=== PATIENT | female | born 1950 | race Caucasian/White ===

== ENCOUNTER 2021-10-13 11:37 | Outpatient (CLI) | payer MEDICARE | END 2021-10-13 11:38 | disposition home or self-care (01) | LOC: CSHMAMMO 11:37 | PROVIDERS: ATTEND Obstetrics & Gynecology | DX: Z13.820 Encounter for screening for osteoporosis (principal); M81.0 Age-related osteoporosis without current pathological fracture; M85.852 Other specified disorders of bone density and structure, left thigh | CPT/HCPCS: 77080 ==

== ENCOUNTER 2022-12-01 10:12 | Outpatient (CLI) | payer MEDICARE | END 2022-12-01 10:13 | disposition home or self-care (01) | LOC: CSHMAMMO 10:12 | PROVIDERS: ATTEND Obstetrics & Gynecology | DX: M81.0 Age-related osteoporosis without current pathological fracture (principal) | CPT/HCPCS: 77080 ==

== ENCOUNTER 2023-02-07 09:29 | Emergency (ER) | payer MEDICARE ==
[2023-02-07] MEDS ORDERED: Dexamethasone 10 MG/ML VIAL ONE (09:51)
[2023-02-07] MEDS ORDERED: Ipratropium/Albuterol 3 ML NEB ONE (09:53)
[2023-02-07 10:18] LABS: Hemoglobin 13.7 g/dL (12.0-15.5); Mean Corpuscular Hemoglobin 30.4 pg (27.0-33.0); Mean Corpuscular Volume 92.2 fl (81.6-98.3); Mean Platelet Volume 9.6 fl (7.4-10.4); Platelet Count 212 10x3/uL (150-450); RBC Distribution Width 14.6 % (11.5-14.5); White Blood Cell (WBC) Count 8.2 10x3/uL (3.5-10.5)
[2023-02-07 10:26] LABS: ALT (SGPT) 19 U/L (8-55); AST (SGOT) 25 U/L (5-34); Albumin 3.8 g/dL (3.4-4.8); Alkaline Phosphatase 73 U/L (40-110); Anion Gap 16 mmol/L (10-20); BUN (Urea Nitrogen) 26 mg/dL (9.8-20.1); Bilirubin, Total 0.6 mg/dL (0.2-1.2); Calc. Creatinine Clearance 0 mL/min (70-130); Calcium 8.6 mg/dL (7.8-10.44); Carbon Dioxide 21 mmol/L (23-31); Chloride 104 mmol/L (98-107); Estimated GFR 37; Globulin 2.1 g/dL (2.4-3.5); Glucose 132 mg/dL (83-110); Potassium 4.6 mmol/L (3.5-5.1); Protein, Total 5.9 g/dL (5.8-8.1); Sodium 136 mmol/L (136-145)
[2023-02-07 11:03] LABS: Band 7 % (5-11); Eosinophils 3 % (0-10); Reactive Lymphocytes 4 % (0-10)
[2023-02-07 11:05] LABS: Lymphocytes 23 % (21-51); Monocytes 12 % (0-10)
[2023-02-07 11:06] LABS: Neutrophil 48 % (42-75)
[2023-02-07 11:07] LABS: Myelocyte 1 % (0-0); RBC Morph Comment Within Normal Limits
[2023-02-07 11:08] LABS: Large Platelets SLIGHT (None Seen); Platelet Adequacy Comment Platelets Normal; Toxic Granulation SLIGHT
[2023-02-07 11:09] LABS: MDiff Complete? YES
[2023-02-07] MEDS ORDERED: Iopamidol 370 76% 100 ML VIAL ONE (13:27)
== END 2023-02-07 11:19 | disposition home or self-care (01) ==
LOC: CSHERS 09:29
DX: J42 Unspecified chronic bronchitis (principal); I10 Essential (primary) hypertension
CPT/HCPCS: 71045; 71275; 80053; 83605; 83880; 84484; 85025; 94640; 94760; J1100; J7620; Q9967

== ENCOUNTER 2023-04-09 13:14 | Emergency (ER) | payer MEDICARE ==
[~2023-04-09 13:14] MED LIST: Iopamidol 370 76% 100 ML VIAL ONE
[2023-04-09 14:06] LABS: ALT (SGPT) 16 U/L (8-55); AST (SGOT) 24 U/L (5-34); Albumin 4.4 g/dL (3.4-4.8); Alkaline Phosphatase 89 U/L (40-110); Anion Gap 13 mmol/L (10-20); BUN (Urea Nitrogen) 19 mg/dL (9.8-20.1); Bilirubin, Total 0.6 mg/dL (0.2-1.2); Calc. Creatinine Clearance 0 mL/min (70-130); Calcium 9.9 mg/dL (7.8-10.44); Carbon Dioxide 27 mmol/L (23-31); Chloride 102 mmol/L (98-107); Estimated GFR 43; Globulin 2.2 g/dL (2.4-3.5); Glucose 94 mg/dL (83-110); Potassium 5.2 mmol/L (3.5-5.1); Protein, Total 6.6 g/dL (5.8-8.1); Sodium 137 mmol/L (136-145)
[2023-04-09 14:12] LABS: Troponin I Less than 0.010 ng/mL (< 0.028)
[2023-04-09 14:13] LABS: #Basophils 0.1 10x3/uL (0.0-0.2); #Eosinphils 0.4 10x3/uL (0.0-0.5); #Neutrophils 6.4 10x3/uL (1.5-8.4); %Basophils 0.6 % (0.0-2.0); %Eosinophils 3.7 % (0.0-6.0); %Lymphocytes 19.7 % (18.0-47.0); %Monocytes 10.6 % (0.0-10.0); Hematocrit 42.1 % (34.9-44.5); Hemoglobin 13.8 g/dL (12.0-15.5); Mean Corpuscular HGB CONC 32.8 g/dL (32.0-36.0); Mean Corpuscular Hemoglobin 30.5 pg (27.0-33.0); Mean Corpuscular Volume 93.1 fl (81.6-98.3); Platelet Count 277 10x3/uL (150-450); RBC Distribution Width 13.3 % (11.5-14.5); Red Blood Cell (RBC) Count 4.52 10x6/uL (3.90-5.03); White Blood Cell (WBC) Count 9.8 10x3/uL (3.5-10.5)
== END 2023-04-09 15:54 | disposition home or self-care (01) ==
LOC: CSHERS 13:14
DX: R07.89 Other chest pain (principal); K21.9 Gastro-esophageal reflux disease without esophagitis; I10 Essential (primary) hypertension; E78.00 Pure hypercholesterolemia, unspecified; J44.9 Chronic obstructive pulmonary disease, unspecified; Z87.891 Personal history of nicotine dependence
CPT/HCPCS: 71045; 71275; 80053; 84484; 85025; 93005; Q9967

== ENCOUNTER 2023-06-15 08:19 | Outpatient (CLI) | payer MEDICARE | END 2023-06-15 08:20 | disposition home or self-care (01) | LOC: CSHMAMMO 08:19 | PROVIDERS: ATTEND Obstetrics & Gynecology | DX: N64.89 Other specified disorders of breast (principal) | CPT/HCPCS: 77065; G0279 ==

== ENCOUNTER 2023-12-21 10:50 | Outpatient (CLI) | payer MEDICARE | END 2023-12-21 10:51 | disposition home or self-care (01) | LOC: CSHMAMMO 10:50 | PROVIDERS: ATTEND Internal Medicine Hematology & Oncology | DX: M81.8 Other osteoporosis without current pathological fracture (principal); M85.852 Other specified disorders of bone density and structure, left thigh | CPT/HCPCS: 77080 ==

== ENCOUNTER 2024-06-29 09:16 | Outpatient (CLI) | payer MEDICARE | END 2024-06-29 09:17 | disposition home or self-care (01) | LOC: CSHMRI 09:16 | PROVIDERS: ATTEND Internal Medicine Cardiovascular Disease | DX: G45.9 Transient cerebral ischemic attack, unspecified (principal); I67.89 Other cerebrovascular disease | CPT/HCPCS: 70551 ==

== ENCOUNTER 2024-06-29 14:03 | Outpatient (CLI) | payer MEDICARE | END 2024-06-29 14:04 | disposition home or self-care (01) | LOC: CSHMAMMO 14:03 | PROVIDERS: ATTEND Internal Medicine | DX: Z12.31 Encounter for screening mammogram for malignant neoplasm of breast (principal); Z98.82 Breast implant status | CPT/HCPCS: 77063; 77067 ==

== ENCOUNTER 2024-07-11 08:58 | Outpatient (CLI) | payer MEDICARE | END 2024-07-11 08:59 | disposition home or self-care (01) | LOC: CSHMRI 08:58 | PROVIDERS: ATTEND Internal Medicine | DX: M54.2 Cervicalgia (principal); G44.209 Tension-type headache, unspecified, not intractable; R20.2 Paresthesia of skin; Z98.890 Other specified postprocedural states; M47.812 Spondylosis without myelopathy or radiculopathy, cervical region; M48.02 Spinal stenosis, cervical region; M25.78 Osteophyte, vertebrae | CPT/HCPCS: 72141 ==